=== PATIENT | male | born 1975 | race Caucasian/White ===

== ENCOUNTER → 2016-12-01 | Outpatient (CLI) | payer OTHER ==
--- NOTE | 2016-12-03 08:48 | XR ---
EXAMINATION TYPE: XR chest 2V DATE OF EXAM: 12/01/2016 3:55 PM COMPARISON: NONE TECHNIQUE: PA and lateral views submitted. HISTORY: Cough FINDINGS: The lungs are clear and there is no pneumothorax, pleural effusion, or focal pneumonia. IMPRESSION: 1. No acute process.
== END | disposition home or self-care (01) ==
LOC: RADXRYALE 15:18
PROVIDERS: ATTEND Internal Medicine
DX: R05 Cough (principal)
CPT/HCPCS: 71020

== ENCOUNTER → 2017-09-16 | Outpatient (CLI) | payer OTHER ==
--- NOTE | 2017-09-16 15:25 | US ---
EXAMINATION TYPE: US carotid duplex BILAT DATE OF EXAM: 09/16/2017 COMPARISON: NONE CLINICAL HISTORY: R42 Vertigo. EXAM MEASUREMENTS: RIGHT: Peak Systolic Velocity (PSV) cm/sec ----- Right CCA: 127.3 ----- Right ICA: 91.4 ----- Right ECA: 133.2 ICA/CCA ratio: 0.7 RIGHT: End Diastole cm/sec ----- Right CCA: 43.0 ----- Right ICA: 31.8 ----- Right ECA: 42.6 LEFT: Peak Systolic Velocity (PSV) cm/sec ----- Left CCA: 131.7 ----- Left ICA: 77.1 ----- Left ECA: 97.7 ICA/CCA ratio: 0.6 LEFT: End Diastole cm/sec ----- Left CCA: 53.2 ----- Left ICA: 38.3 ----- Left ECA: 30.7 VERTEBRALS (direction of flow): Right Vertebral: Antegrade Left Vertebral: Antegrade Grayscale images show no significant focal plaque at carotid bulb level bilaterally. IMPRESSION: No hemodynamic significant stenosis is seen in either internal carotid artery.
== END | disposition home or self-care (01) ==
LOC: RADUSWWP 14:18
PROVIDERS: ATTEND Psychiatry & Neurology Neurology
DX: R42 Dizziness and giddiness (principal)
CPT/HCPCS: 93880

== ENCOUNTER 2021-08-05 19:38 | Emergency (ER) | payer OTHER ==
[2021-08-05 19:59] VITALS: TEMP 99
[2021-08-05 22:38] VITALS: RESP 16
[2021-08-05] MEDS ORDERED: MORPHINE SULFATE 4 MG/ML SYRINGE IM STA (23:27)
[2021-08-05] MEDS ORDERED: CLINDAMYCIN 150 MG CAP PO STA (23:27)
[2021-08-05] MEDS ORDERED: ACET/COD 300 MG/30 MG STARTER PACK 6 TAB BTL PO STA (23:27)
[2021-08-05] MEDS ORDERED: KETOROLAC 30 MG/ML 1 ML VIAL IM STA (23:27)
--- NOTE | 2021-08-05 23:29 | ED ---
ENT HPI - General Chief complaint: Dental/Oral Stated complaint: Dental pain Time Seen by Provider: 08/05/21 22:39 Source: patient Mode of arrival: ambulatory Limitations: no limitations - History of Present Illness Initial comments: 46-year-old male patient presents the emergency department for evaluation of right lower dental pain. States pain started about 3-4 days ago. States he has very poor dentition. Denies any fevers with states he has had some chills. Reports nausea no vomiting. Denies any trismus or difficulty swallowing. Reports mild facial swelling. He states he does have dental insurance but he is unsure who it covers. He did take one 200 mg ibuprofen prior to coming in. Denies any other medications. - Related Data Home Medications Medication Instructions Recorded Confirmed Ciprofloxacin HCl [Cipro] 500 mg PO BID 07/17/15 07/17/15 D-Methorphan/PE/Acetaminophen 1 tab PO DIRECTED PRN 07/17/15 07/17/15 [Tylenol Cold Multi-Symp Caplet] Previous Rx's Medication Instructions Recorded Amoxicillin/Potassium Clav 1 each PO Q12HR #28 tab 07/17/15 [Augmentin 875-125 Tablet] Clindamycin [Cleocin] 450 mg PO Q6H #120 cap 08/05/21 Allergies Allergy/AdvReac Type Severity Reaction Status Date / Time clavulanic acid Allergy Unknown Verified 08/05/21 19:56 potassium Allergy Unknown Verified 08/05/21 19:56 Review of Systems ROS Statement: Those systems with pertinent positive or pertinent negative responses have been documented in the HPI. ROS Other: All systems not noted in ROS Statement are negative. Past Medical History Past Medical History: GERD/Reflux Additional Past Medical History / Comment(s): sinus infection History of Any Multi-Drug Resistant Organisms: None Reported Past Surgical History: No Surgical Hx Reported Past Psychological History: No Psychological Hx Reported Smoking Status: Current every day smoker Past Alcohol Use History: Rare Past Drug Use History: None Reported General Exam Limitations: no limitations General appearance: alert, in no apparent distress, other (This is a well- developed, well-nourished adult male in no acute distress. ) ENT exam: Present: mucous membranes moist, other (Very poor dentition, all teeth are broken down to the gumline. There is generalized gingival erythema hyperpl rishi. No evidence for drainable abscess. There is no sublingual tenderness. No submental swelling.). Absent: normal oropharynx Respiratory exam: Present: normal lung sounds bilaterally. Absent: respiratory distress, wheezes, rales, rhonchi, stridor Cardiovascular Exam: Present: regular rate, normal rhythm, normal heart sounds. Absent: systolic murmur, diastolic murmur, rubs, gallop, clicks Neurological exam: Present: alert, oriented X3, CN II-XII intact Psychiatric exam: Present: normal affect, normal mood Skin exam: Present: warm, dry, intact, normal color. Absent: rash Course Vital Signs 08/05/21 08/05/21 08/06/21 19:56 22:35 00:02 Temperature 99.0 F Pulse Rate 103 H 94 77 Respiratory 20 16 16 Rate Blood Pressure 167/100 140/99 148/82 O2 Sat by Pulse 98 97 99 Oximetry Medical Decision Making - Medical Decision Making 46-year-old male patient presented to the emergency department today for evaluation of right lower dental pain. He has very poor dentition with extensive dental decay. He has no evidence for intraoral abscess. No submental or sublingual swelling or tenderness noted. He was given doses of pain medication here. He is given initial dose of Cleocin which will be sent to his pharmacy. He is instructed to follow-up with the dentist as soon as possible. He does have dental insurance. Return parameters were discussed in detail. He verbalizes understanding and agrees with this plan. My attending is Dr. Hanson. Disposition Clinical Impression: Dental infection Disposition: HOME SELF-CARE Condition: Good Instructions (If sedation given, give patient instructions): Dental Abscess (ED ), Toothache (ED) Additional Instructions: Medications as directed. Follow-up with dentistry as soon as possible. Return for any new, worsening, or concerning symptoms. Prescriptions: Clindamycin [Cleocin] 450 mg PO Q6H #120 cap Is patient prescribed a controlled substance at d/c from ED?: No Referrals: Oma Desai MD [Primary Care Provider] - 1-2 days Time of Disposition: 23:29
[2021-08-06 00:03] VITALS: BP 148/82; PULSE 77
== END 2021-08-06 00:02 | disposition home or self-care (01) ==
LOC: EC 19:38
DX: K04.7 Periapical abscess without sinus (principal); F17.200 Nicotine dependence, unspecified, uncomplicated; Z72.89 Other problems related to lifestyle
CPT/HCPCS: 99283; 96372 ×2; J2270; J1885